=== PATIENT | female | born 1990 ===

== ENCOUNTER 2023-09-26 09:24 | Outpatient (AMB) | payer OTHER, SELFPAY ==
[2023-09-26 09:35] VITALS: BP 118/62; PULSE 85; TEMP 36.7; O2SAT 98; BMI 29.3
--- NOTE | 2023-09-26 09:35 | MHC.OFFWIV ---
Intake Vital Signs 09/26/23 09:35 Height 5 ft 4 in Weight 171 lb BMI 29.3 BP 118/62 Blood Pressure Location Lt brachial Position Sitting Pulse 85 Pulse Source Pulse Oximeter Temp 98.1 F Temp Source Oral Pulse Oximetry (%) 98 Oxygen Delivery Method Room Air Intake Visit Reasons: Sore throat Intake Note: Patient is here today with sore throat for 2 days, was exposewd to strep throat. Allergies Penicillins Allergy (Intermediate, Verified 09/26/23 10:10) Anaphylaxis cillins Allergy (Mild, Uncoded 09/26/23 09:37) Anaphylaxis Medication List - Last Reconciled 09/26/23 by Meghan Pickering, [employer]- atorvastatin 40 mg PO DAILY levothyroxine 25 mcg PO DAILY multivitamin 1 tab PO DAILY Do you need a note to return to daycare/school/sports/work: Yes HPI HPI Comments History of Present Illness Details Here for sore throat, feeling tired, headache, + cough (known smoker), + runny nose , painful swallowing Exposed to partner w/ strep throat Sx started 48 hours ago Using lozenges + OTC analgesics w some relief Review of Systems Const All systems reviewed & are unremarkable except as noted in HPI and below Physical Exam Vital Signs: Last Vital Signs Temp 98.1 F 09/26/23 09:35 Pulse 85 09/26/23 09:35 BP 118/62 09/26/23 09:35 Pulse Ox 98 09/26/23 09:35 Oxygen Delivery Method Room Air 09/26/23 09:35 BMI result Body Mass Index 29.3 HEENT Other: Awake alert NAD Sclera and conjunctiva clear bilat Nares patent, no sinus tenderness with palpation TM intact and clear bilat MMM, pharynx very mild erythema, no exudate, shotty cervical adenopathy bilat RRR LS CTAB Results AMB Rapid Strep AMB Rapid Strep Negative Last Edit by Judi Carter CMA on 09/26/23 09:53 Results Reviewed Results Reviewed: Laboratory Last Values Strep Scn Rapid Clinic Negative 09/26/23 09:48 Assessment & Plan Assessment & Plan (1) Nasopharyngitis: Code(s): J00 - Acute nasopharyngitis [common cold] Plan: Supportive care only. Advised if no improvement in symptoms or worsening of symptoms after 7 days to return to the office for evaluation and treatment. Orders: Orders AMB Rapid Strep Screen Today J02.9 - Acute pharyngitis, unspecified Patient Instructions: Why aren't I getting antibiotics? I am so sick. I need them. I am empathetic that you're not feeling well & want you to recover quickly. The reason I have not prescribed antibiotics today is because I am an [employer] [place]. What does that mean? It means that I am aiding in reducing Antimicrobial resistance (AMR). Antimicrobial resistance (AMR) is one of the top global public health and development threats. It is estimated that bacterial AMR was directly responsible for 1.27 million global deaths in 2019 and contributed to 4.95 million deaths. The misuse and overuse of antimicrobials in humans, animals and plants are the main drivers in the development of drug-resistant pathogens. Taking an antibiotic increases a patient?s chance of becoming colonized or infected with a resistant organism, and taking an antibiotic when not needed can lead to the development of antibiotic resistance. So the why... is because I care! Coding Level of Care Code Est Pt Level 3 (38568) Diagnoses Nasopharyngitis J00
== END 2023-09-26 11:12 | disposition home or self-care (01) ==
PROVIDERS: Visit Provider Nurse Practitioner Family
DX: J00 Acute nasopharyngitis [common cold] (principal); J02.9 Acute pharyngitis, unspecified
CPT/HCPCS: 87880; 99213